=== PATIENT | female | born 1955 | race Caucasian/White ===

== ENCOUNTER → 2020-08-23 12:14 | Outpatient (BNVA) | payer OTHER, SELFPAY | PROVIDERS: PCP Internal Medicine; Visit Provider Internal Medicine | DX: I49.8 Other specified cardiac arrhythmias (principal); I10 Essential (primary) hypertension; Z79.899 Other long term (current) drug therapy | CPT/HCPCS: 99202 ==

== ENCOUNTER → 2020-09-07 13:11 | Outpatient (REF) | payer OTHER, SELFPAY ==
--- NOTE | 2020-09-07 13:23 | CA_ITS ---
Transthoracic Echocardiogram Patient (Last, First, Middle): Sharon Maldonado, Gender: Female Date of : 1955 Age: 64 Procedure Date: 09/07/2020 Procedure Type: Transthoracic Echocardiogram Location: OP Height: 157.48 cm Weight: 65.77 kg BSA: 1.67 m2 Heart Rate: bpm BP: 130 / 76 mmHg Sheet Metal Erector: FABIANA Perez MD: Zeeshan Maldonado MD Senior Firewall Engineer: Rolf Gates MD Symptoms: I49.8 - Other specified cardiac arrhythmias Study Quality: Good ECG Rhythm: Sinus Conclusions: - 1. Normal LV systolic function with impaired relaxation filling pattern 2. Normal cardiac valvular Doppler 3. Normal RV systolic pressure 4. No pericardial effusion Findings Left Ventricle Normal left ventricular size, thickness, and systolic function. The visually estimated ejection fraction is between 55-60%. Spectral Doppler is indicative of an impaired relaxation filling pattern. E/E prime ratio is between 8 and 15 consistent with indeterminate filling pressures. Right Ventricle Normal right ventricular cavity size and systolic function. Atria The left atrium is likely dilated. 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 There is no evidence of interatrial shunt. The right atrium is normal in size. Aortic Valve Normal aortic valve structure and function. There is no aortic valve stenosis. There is no aortic valve regurgitation. Mitral Valve Normal mitral valve structure and function. There is trace mitral valve regurgitation. There is no mitral valve stenosis. Pulmonic Valve The pulmonic valve was not well visualized. Tricuspid Valve Likely normal tricuspid valve structure and function. There is trace tricuspid valve regurgitation. The right ventricular systolic pressure is normal. The right ventricular systolic pressure is 25 mmHg. Normal right atrial pressure. There is no evidence of pulmonary hypertension. Great Vessels All visible segments of the aorta are normal in size. The pulmonary artery was not well visualized. Venous The inferior vena cava is normal in size and collapses greater than 50% with inspiration. Pericardium/Pleural There is no evidence of pericardial effusion. Prior Study Comparison No prior study available for comparison. Measurements 2D Linear Measurements RVIDd: 2.72 RVIDd Index: 1.63 IVSd: 1.10 0.6-0.9/0.6-1.0 cm LVIDd: 5.29 3.9-5.3/4.2-5.9 cm LVIDd Index: 3.17 2.4-3.2/2.2-3.1 cm/m2 LVIDs: 3.49 2.0-3.6 cm LVPWd: 0.96 0.7-1.1 cm Ao Root: 3.20 2.1-3.5 cm LA Diam: 4.00 2.7-3.8/3.0-4.0 cm LAIDs Index: 2.40 1.5-2.3 cm/m2 LV Mass: 259.50 67-162/88-224 g LV Mass Index: 155.39 43-95/49-115 g/m2 LVOT Diam: 2.10 3.0+(-)1.3 cm 2D Systolic Function EF 4C: 54.70 >55% EF 2C: 43.30 >55% Mitral Valve MV Pk E: 0.62 MV PK A: 1.05 MV Decel Time: 252.00 E/A: 0.60 E'Lateral: 6.42 E'Medial: 4.24 E/E' Med: 14.70 E/E' Lat: 9.70 Aortic Valve AoV Pk Ned: 1.35 AoV Mn Ned: 0.97 AoV VTI: 0.26 AoV Pk Grad: 7.00 Aov Mn Grad: 4.00 RENETTA Cont.VTI: 2.89 LVOT LVOT Pk Ned: 0.98 LVOT Mn Ned: 0.66 LVOT VTI: 0.22 LVOT Pk Grad: 4.00 LVOT Mn Grad: 2.00 LVOT Diam: 2.10 LVOT Area: 3.46 Diastolic Function MV Pk E: 0.62 MV Pk A: 1.05 E/A: 0.60 E'Medial: 4.24 E/E' Med: 14.70 E' Laterial: 6.42 E/E' Lat: 9.70 Tricuspid Valve TR Pk Ned: 2.35 TR Pk Grad: 22.00 RA Press: 3.00 RVSP: 25.00 Great Vessels Aorta Ao Root-2D: 3.20 2.0-3.7 cm Ao Asc: 3.10 2.1-3.4 cm Ao Arch: 2.20 Updated in Other Vendor System with Status of Final Rolf Gates MD electronically signed on 09/07/2020 2:58:08 PM with status of Final
--- NOTE | 2020-09-07 13:23 | ECG_ITS ---
Hook-up date: 2020-09-07 14:09:00 Duration: 47:59:00 Test Indications: UNSPEC. CARDIAC ARRHYTHMIAS Medications: [id number] QRS complexes 5 Ventricular ectopics which represent <1 % of total QRS comp. * Supraventricular ectopics which represent % of total QRS comp. * Paced QRS complexs which represent % of total QRS comp. VENTRICULAR ECTOPY 5 Isolated 0 Bigeminal Cycles 0 Couplets 0 Runs 0 Beats in Runs * Beats LONGEST at * BPM at :: -- * Beats FASTEST at * BPM at :: -- SUPRAVENTRICULAR ECTOPY * Isolated * Couplets * Runs * Beats in Runs * Beats LONGEST at * BPM at :: -- * Beats FASTEST at * BPM at :: -- HEART RATES 56 MIN at 17:43:53 2020-09-07 79 AVG 122 MAX at 18:37:59 2020-09-07 LONGEST RR 1.2640 secs at 03:07:37 2020-09-08 S-T LEVELS Channel 1 - 128 mm at 14:09:00 2020-09-07 - 128 mm at 14:09:00 2020-09-07 Channel 2 - 128 mm at 14:09:00 2020-09-07 - 128 mm at 14:09:00 2020-09-07 Channel 3 - 128 mm at 03:32:81 -- - 128 mm at 03:32:81 Basic rhythm Normal sinus rhythm No long pause or profound bradycardia Rare Premature ventricular complexes Patient did not report any symptoms in the diary Referred By: Zeeshan Maldonado Overread By: RANJIT BROWN MD
== END ==
LOC: HO.CARD 13:11
PROVIDERS: PCP Internal Medicine; Visit Provider Internal Medicine
DX: I49.8 Other specified cardiac arrhythmias (principal)
CPT/HCPCS: 93225; 93226; 93306

== ENCOUNTER → 2020-09-21 13:17 | Outpatient (BNVA) | payer OTHER, SELFPAY | PROVIDERS: PCP Internal Medicine; Referring Provider Internal Medicine; Visit Provider Internal Medicine | DX: I49.8 Other specified cardiac arrhythmias (principal); I10 Essential (primary) hypertension | CPT/HCPCS: 99212 ==

== ENCOUNTER 2021-02-24 13:01 | Outpatient (REF) | payer OTHER, SELFPAY ==
--- NOTE | ~2021-02-24 | XR_ITS ---
EXAMINATION: XR SHOULDER, LEFT CLINICAL INFORMATION: Pain COMPARISON: None TECHNIQUE: AP external rotation, Grashey, scapular Y, and axillary views of the left shoulder. FINDINGS: Bone alignment is normal. No fracture or dislocation is seen. The glenohumeral joint is normal. 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 Soft tissues are unremarkable. XR/XR shoulder LT min 2V IMPRESSION: Mild arthritis at the acromioclavicular joint.
[2021-02-24 14:31] LABS: Alanine Aminotransferase 19 U/L (0-31); Albumin Level 4.5 g/dL (3.5-5.0); Alkaline Phosphatase 70 U/L (39-117); Anion Gap 12 (12-20); Aspartate Amino Transferase 17 U/L (5-31); Bilirubin Total 0.4 mg/dL (0.0-1.0); Blood Urea Nitrogen 13 mg/dL (9-16); Calcium 9.2 mg/dL (8.4-10.2); Carbon Dioxide 27 mmol/L (22-29); Chloride 107 mmol/L (96-108); Estimated Glomerular Filt Rate 59; Glucose Random 96 mg/dL (60-115); Potassium 4.7 mmol/L (3.3-5.1); Sodium 141 mmol/L (135-145); Total Protein 6.9 g/dL (6.5-8.0)
== END 2021-02-24 13:02 | disposition home or self-care (01) ==
LOC: HO.HMGCX 13:01
PROVIDERS: PCP Internal Medicine; Visit Provider Internal Medicine
DX: M25.512 Pain in left shoulder (principal); I10 Essential (primary) hypertension
CPT/HCPCS: 36415; 73030; 80053

== ENCOUNTER 2022-10-17 17:49 | Emergency (ER) | payer MEDICARE, MEDICAID, SELFPAY ==
--- NOTE | ~2022-10-17 | XR_ITS ---
EXAMINATION: XR CHEST CLINICAL INFORMATION: Chest pain COMPARISON: None TECHNIQUE: Frontal view of the chest was obtained. FINDINGS: No significant abnormality is noted involving the heart, lungs, mediastinum, bony thorax or soft tissues. XR/XR chest 1V IMPRESSION: Unremarkable chest exam.
--- NOTE | 2022-10-17 18:24 | ED_ITS ---
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 Chest pain to the mid chest area described as pressure for localized to the retrosternal area, no radiation, associated with palpitation, feels like pressure on the mid chest and also feel like something stuck in her throat, patient was sitting in the car with no stressful event when the pain started, no relieving factor, no aggravating factors. Patient had similar symptoms in the past but did not seek medical attention. Patient has past medical history significant for hypertension and smoking history. Patient was evaluated by a sack filler in the past for palpitation needed Holter monitor which showed a benign PACs. <Abraham Orona MD - Last Filed: 10/18/22 01:22> Related Data Home medications: Home Medications Medication Instructions Recorded Confirmed fluoxetine 20 mg capsule 20 mg PO DAILY 08/23/20 09/29/21 lorazepam 0.5 mg tablet 0.5 mg PO DAILY PRN 08/23/20 09/29/21 zolpidem 10 mg tablet 10 mg PO BEDTIME PRN 08/23/20 09/29/21 Previous Rx's Medication Instructions Recorded irbesartan 300 mg tablet 300 mg PO DAILY 90 days #90 tabs 09/11/21 atenolol 50 mg-chlorthalidone 25 1 tab PO DAILY 90 days #90 tabs 09/12/21 mg tablet nifedipine 30 mg tablet,extended 30 mg PO DAILY 90 days #90 tabs 10/30/21 release 24 hr (Procardia XL) <FRANC Espinosa - Last Filed: 10/17/22 20:54> Allergies/adverse reactions: Allergies Allergy/AdvReac Type Severity Reaction Status Date / Time No Known Allergies Allergy Verified 12/25/21 11:21 <FRANC Espinosa - Last Filed: 10/17/22 20:54> Review of Systems Review of Systems: All other systems are reviewed and are negative Constitutional: Reports as per HPI and Reports no additional constitutional complaints Eyes: Reports as per HPI and Reports no additional eye complaints Reports system reviewed and no additional complaints, except as documented Cardiovascular: Reports as per HPI and Reports no additional cardiovascular complaints Respiratory: Reports as per HPI and Reports no additional respiratory complaints Gastrointestinal: Reports as per HPI and Reports no additional gastrointestinal complaints Genitourinary: Reports no additional female genitourinary complaints Musculoskeletal: Reports no additional musculoskeletal complaints Skin/Breast: Reports system reviewed and no additional complaints, except as docu Psychiatric: Reports no additional psychiatric complaints Endocrine: Reports no additional endocrine complaints Hematologic/Lymphatic: Reports no additional hematologic/lymphatic complaints Allergic/Immunologic: Reports no additional allergic/immunologic complaints Reports system reviewed and no additional complaints, except as documented and Reports Abnormal speech present <Abraham Orona MD - Last Filed: 10/18/22 01:22> [facility] Past Medical History Medical History: Medical History Essential hypertension <FRANC Espinosa - Last Filed: 10/17/22 20:54> Surgical History: Surgical History No pertinent past surgical history <FRANC Espinosa - Last Filed: 10/17/22 20:54> Family History Family History: Family History Sister No problems noted. Sister Cardiomyopathy Father Cancer of prostate Mother No problems noted. Brother No problems noted. Brother No problems noted. Other Mental health disorder Substance abuse <FRANC Espinosa - Last Filed: 10/17/22 20:54> Social History Social History: Social History Housing: House Patient Tobacco Use Status: Current everyday Tobacco user Tobacco use type: Cigarette Cigarettes Per Day: 7 Advance Directives: No Advance Directives Information Provided: Yes Current occupational status: unemployed <FRANC Espinosa - Last Filed: 10/17/22 20:54> Physical Exam ED Vital Signs: Vital Signs - 24 hr 10/17/22 18:25 10/18/22 00:17 Temperature 97.8 F 97.3 F Pulse Rate 92 83 Respiratory Rate 20 18 Blood Pressure 186/89 H 168/83 H Pulse Oximetry 96 96 Oxygen Delivery Method Room Air Room Air BMI result Body Mass Index 29.6 <FRANC Espinosa - Last Filed: 10/17/22 20:54> Vital Signs - 24 hr 10/17/22 18:25 10/18/22 00:17 Temperature 97.8 F 97.3 F Pulse Rate 92 83 Respiratory Rate 20 18 Blood Pressure 186/89 H 168/83 H Pulse Oximetry 96 96 Oxygen Delivery Method Room Air Room Air BMI result Body Mass Index 29.6 vital signs have been reviewed as appeared to be correct. Blood pressure Elevated. Heart rate normal. Respiration rate normal. Temperature normal. Oxygen saturation normal. <Abraham Orona MD - Last Filed: 10/18/22 01:22> Vital Signs - 24 hr 10/17/22 18:25 10/18/22 00:17 Temperature 97.8 F 97.3 F Pulse Rate 92 83 Respiratory Rate 20 18 Blood Pressure 186/89 H 168/83 H Pulse Oximetry 96 96 Oxygen Delivery Method Room Air Room Air BMI result Body Mass Index 29.6 <FRANC Mcfadden - Last Filed: 10/18/22 01:20> Appearance: anxious, Alert. Oriented X3. No acute distress. Head: Normal external exam. Normocephalic. Atraumatic. No Do signs noted. No raccoon eyes noted Eyes: PERRLA. EOMI. Conjunctiva and sclera normal. Eyelids normal. ENT: TM's Normal. Pharynx normal. Uvula midline. Moist mucous membranes. No trismus noted. No drooling noted. No muffled voice noted. Neck: Normal inspection. Neck supple. FROM. No adenopathy. Thyroid Normal. No meningeal signs. No neck mass noted. CVS: Normal heart rate and rhythm. Heart sound normal. No murmurs noted. Pulses normal throughout. Respiratory: No respiratory distress. Painless inspiration. Breath sounds nor mal. No wheezes/rales/rhonchi noted. Chest nontender. No accessory muscle usage noted or decreased air movement noted. Abdomen: Soft and nontender. Bowel sounds normal in all 4 quadrants. No distent ion noted. No organomegaly noted. No visible injury noted. Back: No CVA tenderness. Full range of motion noted. Skin: Skin warm and dry. Normal skin color. Normal skin turgor. No rashes/lesions/lacerations noted. Extremities: No lower extremity edema. Extremities exhibit normal range of mot ion. Extremities nontender. Neuro: Oriented X 3. Cranial nerve exam: II-XII are grossly intact No motor deficit. No sensory deficit. Reflexes normal. <Abraham Orona MD - Last Filed: 10/18/22 01:22> Course Course Course Narrative: RMReed--67-year-old female with past medical history hypertension, c/o substrnal CP x today. Admits to simialr sx in the past. Denies radiation of pain. Denies SOB, N/V, dizziness as present Vital signs stable, nontoxic appearing EKG, labs, CXR, COVID/influenza ordered in triage <FRANC Espinosa - Last Filed: 10/17/22 20:54> RME--67-year-old female with past medical history hypertension, c/o substrnal CP x today. Admits to simialr sx in the past. Denies radiation of pain. Denies SOB, N/V, dizziness as present Vital signs stable, nontoxic appearing EKG, labs, CXR, COVID/influenza ordered in triage [id number] My colleague asked me to go speak to patient and explained to her in [place] the risks of leaving against medical advice. I had an at length conversation with patient I explained to her that her troponin is elevated and there was concern of cardiac injury and potentially cardiac ischemia, I explained everything in layman's terms, patient tells me she does not like doctors or medical providers, patient extremely rude and states she wants to leave and she is unwilling to stay. I asked her why she did not want to stay and of there was anything we could do to make her stay more comfortable and she says she just hates hospitals and doctors just try to scare people she says she is not having a cardiac event she is fine she feels okay and she is not even having chest pain. She tells me she does not care if she dies when she walks out of here, she tells me she would rather be at home. Patient verbalizes understanding of risks versus benefits of leaving versus staying. Significant other at the bedside also understanding risks versus benefits. I did speak to my attending Dr. Orona about the conversation I had with patient, he had a similar interaction with patient earlier. Patient unwilling to stay and is willing to sign out against medical advice <FRANC Mcfadden - Last Filed: 10/18/22 01:20> Reevaluation(s) Reevaluation #1: There is a serious concern non ST elevation MT that was explained to the patient in [place] language, several attempt to make the patient change her mind to stay in the hospital patient do not like hospitals do not like doctors and she will not stay, patient is aware that this is a serious medical condition can lead to . FRANC Esposito who also speak fluent [place] tried to convince the patient unfortunately could not make the patient change her mind patient will sign AMA. Patient also earlier refused an aspirin/ nitro/Lopressor. Patient made aware that she welcome back to the hospital at any time. <Abraham Orona MD - Last Filed: 10/18/22 01:22> Time: 01:18 <Abraham Orona MD - Last Filed: 10/18/22 01:22> Medications Administered Discontinued Medications Generic Name Dose Route Start Last Admin Trade Name Michelle PRN Reason Stop Dose Admin Al Hydroxide/Mg Hydroxide 30 ml 10/17/22 22:36 10/17/22 23:18 Magnesium Hydrox/Alum Hydrox 30 Ml Oral.Susp PO 10/17/22 22:37 Not Given ONCE ONE Aspirin 81 mg 10/17/22 22:36 10/17/22 23:18 Aspirin Enteric Coated 81 Mg Tablet.Dr PO 10/17/22 22:37 Not Given ONCE ONE Metoprolol Tartrate 25 mg 10/17/22 22:36 10/17/22 23:18 Metoprolol Tartrate 25 Mg Tablet PO 10/17/22 22:37 Not Given ONCE ONE Protocol Nitroglycerin 0.5 inch 10/17/22 22:36 10/17/22 23:18 Nitroglycerin 2 % Oint 1 Gm Packet TRANSDERMA 10/17/22 22:37 Not Given ONCE ONE <FRANC Espinosa - Last Filed: 10/17/22 20:54> Medications Administered Discontinued Medications Generic Name Dose Route Start Last Admin Trade Name Michelle PRN Reason Stop Dose Admin Al Hydroxide/Mg Hydroxide 30 ml 10/17/22 22:36 10/17/22 23:18 Magnesium Hydrox/Alum Hydrox 30 Ml Oral.Susp PO 10/17/22 22:37 Not Given ONCE ONE Aspirin 81 mg 10/17/22 22:36 10/17/22 23:18 Aspirin Enteric Coated 81 Mg Tablet. PO 10/17/22 22:37 Not Given ONCE ONE Metoprolol Tartrate 25 mg 10/17/22 22:36 10/17/22 23:18 Metoprolol Tartrate 25 Mg Tablet PO 10/17/22 22:37 Not Given ONCE ONE Protocol Nitroglycerin 0.5 inch 10/17/22 22:36 10/17/22 23:18 Nitroglycerin 2 % Oint 1 Gm Packet TRANSDERMA 10/17/22 22:37 Not Given ONCE ONE <Abraham Orona MD - Last Filed: 10/18/22 01:22> Medications Administered Discontinued Medications Generic Name Dose Route Start Last Admin Trade Name Michelle PRN Reason Stop Dose Admin Al Hydroxide/Mg Hydroxide 30 ml 10/17/22 22:36 10/17/22 23:18 Magnesium Hydrox/Alum Hydrox 30 Ml Oral.Susp PO 10/17/22 22:37 Not Given ONCE ONE Aspirin 81 mg 10/17/22 22:36 10/17/22 23:18 Aspirin Enteric Coated 81 Mg Tablet. PO 10/17/22 22:37 Not Given ONCE ONE Metoprolol Tartrate 25 mg 10/17/22 22:36 10/17/22 23:18 Metoprolol Tartrate 25 Mg Tablet PO 10/17/22 22:37 Not Given ONCE ONE Protocol Nitroglycerin 0.5 inch 10/17/22 22:36 10/17/22 23:18 Nitroglycerin 2 % Oint 1 Gm Packet TRANSDERMA 10/17/22 22:37 Not Given ONCE ONE <FRANC Mcfadden - Last Filed: 10/18/22 01:20> Medical Decision Making Differential Diagnosis Differential Diagnoses: The differential diagnosis associated with the presentation includes ( A non ST elevation MT/ PE/pneumonia/ pneumothorax.) <Abraham Orona MD - Last Filed: 10/18/22 01:22> Lab Data MDM Lab Attestation statement: I reviewed the patient's lab results. <Abraham Orona MD - Last Filed: 10/18/22 01:22> Result Diagrams: : 10/17/22 20:12 10/17/22 20:12 <FRANC Espinosa - Last Filed: 10/17/22 20:54> Labs: Lab Results 10/17/22 10/17/22 10/17/22 Range/Units 20:12 20:12 20:12 WBC 7.1 (4.8-10.8) X10*3/uL RBC 4.11 L (4.20-5.50) X10*6/uL Hgb 12.8 (12.0-16.0) g/dl Hct 38.3 (37.0-47.0) % MCV 93.2 (80.0-98.0) fL MCH 31.1 (27.0-33.0) pg MCHC 33.4 (31.0-35.0) g/dl RDW 13.0 (11.0-16.0) % Plt Count 233 (160-400) X10*3/uL MPV 11.1 (9.4-12.3) fL Immature Gran % (Auto) 0.1 (0.0-0.4) % Neut % (Auto) 58.7 (45-73) % Lymph % (Auto) 31.5 (20-40) % [place] % (Auto) 6.5 (2-11) % Eos % (Auto) 2.5 (0-4) % Baso % (Auto) 0.7 (0-2) % Lymph # (Auto) 2.2 (1.2-4.9) X10*3/uL [place] # (Auto) 0.5 (0.1-1.2) X10*3/uL Eos # (Auto) 0.2 (0.0-0.4) X10*3/uL Baso # (Auto) 0.1 (0.0-0.2) X10*3/uL Abs Immat Gran (auto) 0.01 (0.00-0.03) X10*3/uL Absolute Neuts (auto) 4.2 (2.0-8.3) x10*3/uL Absolute Nucleated RBC 0.000 (0.0-0.012) X10*3/uL Nucleated RBC % (auto) 0.0 (0.0-0.2) /100WBC Sodium 142 (135-145) mmol/L Potassium 4.2 (3.3-5.1) mmol/L Chloride 109 H (96-108) mmol/L Carbon Dioxide 28 (22-29) mmol/L Anion Gap 9 L (12-20) BUN 26 H (9-16) mg/dL Creatinine 0.89 (0.5-1.4) mg/dL Estim Creat Clear Calc 58.3 Estimated GFR > 60 Random Glucose 108 (60-115) mg/dL Calcium 9.5 (8.4-10.2) mg/dL Total Bilirubin 0.3 (0.0-1.0) mg/dL Direct Bilirubin < 0.2 (0.0-0.5) mg/dL AST 14 (5-31) U/L ALT 13 (0-31) U/L Alkaline Phosphatase 81 (39-117) U/L Troponin I High Sens (<3.5-17.0) ng/L B-Natriuretic Peptide 15 (<100) pg/mL Total Protein 6.9 (6.5-8.0) g/dL Albumin 4.4 (3.5-5.0) g/dL TSH 1.54 (0.32-4.0) uIU/mL COVID-19 (BELEN) (Negative) COVID-19 Clin Com Influenza Type A (DON) (Negative) Influenza Type B (DON) (Negative) Influenza A & B Note 10/17/22 10/17/22 10/17/22 Range/Units 20:12 20:12 20:13 WBC (4.8-10.8) X10*3/uL RBC (4.20-5.50) X10*6/uL Hgb (12.0-16.0) g/dl Hct (37.0-47.0) % MCV (80.0-98.0) fL MCH (27.0-33.0) pg MCHC (31.0-35.0) g/dl RDW (11.0-16.0) % Plt Count (160-400) X10*3/uL MPV (9.4-12.3) fL Immature Gran % (Auto) (0.0-0.4) % Neut % (Auto) (45-73) % Lymph % (Auto) (20-40) % [place] % (Auto) (2-11) % Eos % (Auto) (0-4) % Baso % (Auto) (0-2) % Lymph # (Auto) (1.2-4.9) X10*3/uL [place] # (Auto) (0.1-1.2) X10*3/uL Eos # (Auto) (0.0-0.4) X10*3/uL Baso # (Auto) (0.0-0.2) X10*3/uL Abs Immat Gran (auto) (0.00-0.03) X10*3/uL Absolute Neuts (auto) (2.0-8.3) x10*3/uL Absolute Nucleated RBC (0.0-0.012) X10*3/uL Nucleated RBC % (auto) (0.0-0.2) /100WBC Sodium (135-145) mmol/L Potassium (3.3-5.1) mmol/L Chloride (96-108) mmol/L Carbon Dioxide (22-29) mmol/L Anion Gap (12-20) BUN (9-16) mg/dL Creatinine (0.5-1.4) mg/dL Estim Creat Clear Calc Estimated GFR Random Glucose (60-115) mg/dL Calcium (8.4-10.2) mg/dL Total Bilirubin (0.0-1.0) mg/dL Direct Bilirubin (0.0-0.5) mg/dL AST (5-31) U/L ALT (0-31) U/L Alkaline Phosphatase (39-117) U/L Troponin I High Sens 79.4 H* (<3.5-17.0) ng/L B-Natriuretic Peptide (<100) pg/mL Total Protein (6.5-8.0) g/dL Albumin (3.5-5.0) g/dL TSH (0.32-4.0) uIU/mL COVID-19 (BLEEN) Negative (Negative) COVID-19 Clin Com See Note Influenza Type A (DON) Negative (Negative) Influenza Type B (DON) Negative (Negative) Influenza A & B Note See Note 10/18/22 Range/Units 00:14 WBC (4.8-10.8) X10*3/uL RBC (4.20-5.50) X10*6/uL Hgb (12.0-16.0) g/dl Hct (37.0-47.0) % MCV (80.0-98.0) fL MCH (27.0-33.0) pg MCHC (31.0-35.0) g/dl RDW (11.0-16.0) % Plt Count (160-400) X10*3/uL MPV (9.4-12.3) fL Immature Gran % (Auto) (0.0-0.4) % Neut % (Auto) (45-73) % Lymph % (Auto) (20-40) % [place] % (Auto) (2-11) % Eos % (Auto) (0-4) % Baso % (Auto) (0-2) % Lymph # (Auto) (1.2-4.9) X10*3/uL [place] # (Auto) (0.1-1.2) X10*3/uL Eos # (Auto) (0.0-0.4) X10*3/uL Baso # (Auto) (0.0-0.2) X10*3/uL Abs Immat Gran (auto) (0.00-0.03) X10*3/uL Absolute Neuts (auto) (2.0-8.3) x10*3/uL Absolute Nucleated RBC (0.0-0.012) X10*3/uL Nucleated RBC % (auto) (0.0-0.2) /100WBC Sodium (135-145) mmol/L Potassium (3.3-5.1) mmol/L Chloride (96-108) mmol/L Carbon Dioxide (22-29) mmol/L Anion Gap (12-20) BUN (9-16) mg/dL Creatinine (0.5-1.4) mg/dL Estim Creat Clear Calc Estimated GFR Random Glucose (60-115) mg/dL Calcium (8.4-10.2) mg/dL Total Bilirubin (0.0-1.0) mg/dL Direct Bilirubin (0.0-0.5) mg/dL AST (5-31) U/L ALT (0-31) U/L Alkaline Phosphatase (39-117) U/L Troponin I High Sens 113.6 H* (<3.5-17.0) ng/L B-Natriuretic Peptide (<100) pg/mL Total Protein (6.5-8.0) g/dL Albumin (3.5-5.0) g/dL TSH (0.32-4.0) uIU/mL COVID-19 (BELEN) (Negative) COVID-19 Clin Com Influenza Type A (DON) (Negative) Influenza Type B (DON) (Negative) Influenza A & B Note <FRANC Espinosa - Last Filed: 10/17/22 20:54> Lab Results 10/17/22 10/17/22 10/17/22 Range/Units 20:12 20:12 20:12 WBC 7.1 (4.8-10.8) X10*3/uL RBC 4.11 L (4.20-5.50) X10*6/uL Hgb 12.8 (12.0-16.0) g/dl Hct 38.3 (37.0-47.0) % MCV 93.2 (80.0-98.0) fL MCH 31.1 (27.0-33.0) pg MCHC 33.4 (31.0-35.0) g/dl RDW 13.0 (11.0-16.0) % Plt Count 233 (160-400) X10*3/uL MPV 11.1 (9.4-12.3) fL Immature Gran % (Auto) 0.1 (0.0-0.4) % Neut % (Auto) 58.7 (45-73) % Lymph % (Auto) 31.5 (20-40) % [place] % (Auto) 6.5 (2-11) % Eos % (Auto) 2.5 (0-4) % Baso % (Auto) 0.7 (0-2) % Lymph # (Auto) 2.2 (1.2-4.9) X10*3/uL [place] # (Auto) 0.5 (0.1-1.2) X10*3/uL Eos # (Auto) 0.2 (0.0-0.4) X10*3/uL Baso # (Auto) 0.1 (0.0-0.2) X10*3/uL Abs Immat Gran (auto) 0.01 (0.00-0.03) X10*3/uL Absolute Neuts (auto) 4.2 (2.0-8.3) x10*3/uL Absolute Nucleated RBC 0.000 (0.0-0.012) X10*3/uL Nucleated RBC % (auto) 0.0 (0.0-0.2) /100WBC Sodium 142 (135-145) mmol/L Potassium 4.2 (3.3-5.1) mmol/L Chloride 109 H (96-108) mmol/L Carbon Dioxide 28 (22-29) mmol/L Anion Gap 9 L (12-20) BUN 26 H (9-16) mg/dL Creatinine 0.89 (0.5-1.4) mg/dL Estim Creat Clear Calc 58.3 Estimated GFR > 60 Random Glucose 108 (60-115) mg/dL Calcium 9.5 (8.4-10.2) mg/dL Total Bilirubin 0.3 (0.0-1.0) mg/dL Direct Bilirubin < 0.2 (0.0-0.5) mg/dL AST 14 (5-31) U/L ALT 13 (0-31) U/L Alkaline Phosphatase 81 (39-117) U/L Troponin I High Sens (<3.5-17.0) ng/L B-Natriuretic Peptide 15 (<100) pg/mL Total Protein 6.9 (6.5-8.0) g/dL Albumin 4.4 (3.5-5.0) g/dL TSH 1.54 (0.32-4.0) uIU/mL COVID-19 (BELEN) (Negative) COVID-19 Clin Com Influenza Type A (DON) (Negative) Influenza Type B (DON) (Negative) Influenza A & B Note 10/17/22 10/17/22 10/17/22 Range/Units 20:12 20:12 20:13 WBC (4.8-10.8) X10*3/uL RBC (4.20-5.50) X10*6/uL Hgb (12.0-16.0) g/dl Hct (37.0-47.0) % MCV (80.0-98.0) fL MCH (27.0-33.0) pg MCHC (31.0-35.0) g/dl RDW (11.0-16.0) % Plt Count (160-400) X10*3/uL MPV (9.4-12.3) fL Immature Gran % (Auto) (0.0-0.4) % Neut % (Auto) (45-73) % Lymph % (Auto) (20-40) % [place] % (Auto) (2-11) % Eos % (Auto) (0-4) % Baso % (Auto) (0-2) % Lymph # (Auto) (1.2-4.9) X10*3/uL [place] # (Auto) (0.1-1.2) X10*3/uL Eos # (Auto) (0.0-0.4) X10*3/uL Baso # (Auto) (0.0-0.2) X10*3/uL Abs Immat Gran (auto) (0.00-0.03) X10*3/uL Absolute Neuts (auto) (2.0-8.3) x10*3/uL Absolute Nucleated RBC (0.0-0.012) X10*3/uL Nucleated RBC % (auto) (0.0-0.2) /100WBC Sodium (135-145) mmol/L Potassium (3.3-5.1) mmol/L Chloride (96-108) mmol/L Carbon Dioxide (22-29) mmol/L Anion Gap (12-20) BUN (9-16) mg/dL Creatinine (0.5-1.4) mg/dL Estim Creat Clear Calc Estimated GFR Random Glucose (60-115) mg/dL Calcium (8.4-10.2) mg/dL Total Bilirubin (0.0-1.0) mg/dL Direct Bilirubin (0.0-0.5) mg/dL AST (5-31) U/L ALT (0-31) U/L Alkaline Phosphatase (39-117) U/L Troponin I High Sens 79.4 H* (<3.5-17.0) ng/L B-Natriuretic Peptide (<100) pg/mL Total Protein (6.5-8.0) g/dL Albumin (3.5-5.0) g/dL TSH (0.32-4.0) uIU/mL COVID-19 (BELEN) Negative (Negative) COVID-19 Clin Com See Note Influenza Type A (DON) Negative (Negative) Influenza Type B (DON) Negative (Negative) Influenza A & B Note See Note 10/18/22 Range/Units 00:14 WBC (4.8-10.8) X10*3/uL RBC (4.20-5.50) X10*6/uL Hgb (12.0-16.0) g/dl Hct (37.0-47.0) % MCV (80.0-98.0) fL MCH (27.0-33.0) pg MCHC (31.0-35.0) g/dl RDW (11.0-16.0) % Plt Count (160-400) X10*3/uL MPV (9.4-12.3) fL Immature Gran % (Auto) (0.0-0.4) % Neut % (Auto) (45-73) % Lymph % (Auto) (20-40) % [place] % (Auto) (2-11) % Eos % (Auto) (0-4) % Baso % (Auto) (0-2) % Lymph # (Auto) (1.2-4.9) X10*3/uL [place] # (Auto) (0.1-1.2) X10*3/uL Eos # (Auto) (0.0-0.4) X10*3/uL Baso # (Auto) (0.0-0.2) X10*3/uL Abs Immat Gran (auto) (0.00-0.03) X10*3/uL Absolute Neuts (auto) (2.0-8.3) x10*3/uL Absolute Nucleated RBC (0.0-0.012) X10*3/uL Nucleated RBC % (auto) (0.0-0.2) /100WBC Sodium (135-145) mmol/L Potassium (3.3-5.1) mmol/L Chloride (96-108) mmol/L Carbon Dioxide (22-29) mmol/L Anion Gap (12-20) BUN (9-16) mg/dL Creatinine (0.5-1.4) mg/dL Estim Creat Clear Calc Estimated GFR Random Glucose (60-115) mg/dL Calcium (8.4-10.2) mg/dL Total Bilirubin (0.0-1.0) mg/dL Direct Bilirubin (0.0-0.5) mg/dL AST (5-31) U/L ALT (0-31) U/L Alkaline Phosphatase (39-117) U/L Troponin I High Sens 113.6 H* (<3.5-17.0) ng/L B-Natriuretic Peptide (<100) pg/mL Total Protein (6.5-8.0) g/dL Albumin (3.5-5.0) g/dL TSH (0.32-4.0) uIU/mL COVID-19 (BELEN) (Negative) COVID-19 Clin Com Influenza Type A (DON) (Negative) Influenza Type B (DON) (Negative) Influenza A & B Note <Abraham Orona MD - Last Filed: 10/18/22 01:22> Lab Results 10/17/22 10/17/22 10/17/22 Range/Units 20:12 20:12 20:12 WBC 7.1 (4.8-10.8) X10*3/uL RBC 4.11 L (4.20-5.50) X10*6/uL Hgb 12.8 (12.0-16.0) g/dl Hct 38.3 (37.0-47.0) % MCV 93.2 (80.0-98.0) fL MCH 31.1 (27.0-33.0) pg MCHC 33.4 (31.0-35.0) g/dl RDW 13.0 (11.0-16.0) % Plt Count 233 (160-400) X10*3/uL MPV 11.1 (9.4-12.3) fL Immature Gran % (Auto) 0.1 (0.0-0.4) % Neut % (Auto) 58.7 (45-73) % Lymph % (Auto) 31.5 (20-40) % [place] % (Auto) 6.5 (2-11) % Eos % (Auto) 2.5 (0-4) % Baso % (Auto) 0.7 (0-2) % Lymph # (Auto) 2.2 (1.2-4.9) X10*3/uL [place] # (Auto) 0.5 (0.1-1.2) X10*3/uL Eos # (Auto) 0.2 (0.0-0.4) X10*3/uL Baso # (Auto) 0.1 (0.0-0.2) X10*3/uL Abs Immat Gran (auto) 0.01 (0.00-0.03) X10*3/uL Absolute Neuts (auto) 4.2 (2.0-8.3) x10*3/uL Absolute Nucleated RBC 0.000 (0.0-0.012) X10*3/uL Nucleated RBC % (auto) 0.0 (0.0-0.2) /100WBC Sodium 142 (135-145) mmol/L Potassium 4.2 (3.3-5.1) mmol/L Chloride 109 H (96-108) mmol/L Carbon Dioxide 28 (22-29) mmol/L Anion Gap 9 L (12-20) BUN 26 H (9-16) mg/dL Creatinine 0.89 (0.5-1.4) mg/dL Estim Creat Clear Calc 58.3 Estimated GFR > 60 Random Glucose 108 (60-115) mg/dL Calcium 9.5 (8.4-10.2) mg/dL Total Bilirubin 0.3 (0.0-1.0) mg/dL Direct Bilirubin < 0.2 (0.0-0.5) mg/dL AST 14 (5-31) U/L ALT 13 (0-31) U/L Alkaline Phosphatase 81 (39-117) U/L Troponin I High Sens (<3.5-17.0) ng/L B-Natriuretic Peptide 15 (<100) pg/mL Total Protein 6.9 (6.5-8.0) g/dL Albumin 4.4 (3.5-5.0) g/dL TSH 1.54 (0.32-4.0) uIU/mL COVID-19 ([facility]ELEN) (Negative) COVID-19 Clin Com Influenza Type A (DON) (Negative) Influenza Type B (DON) (Negative) Influenza A & B Note 10/17/22 10/17/22 10/17/22 Range/Units 20:12 20:12 20:13 WBC (4.8-10.8) X10*3/uL RBC (4.20-5.50) X10*6/uL Hgb (12.0-16.0) g/dl Hct (37.0-47.0) % MCV (80.0-98.0) fL MCH (27.0-33.0) pg MCHC (31.0-35.0) g/dl RDW (11.0-16.0) % Plt Count (160-400) X10*3/uL MPV (9.4-12.3) fL Immature Gran % (Auto) (0.0-0.4) % Neut % (Auto) (45-73) % Lymph % (Auto) (20-40) % [place] % (Auto) (2-11) % Eos % (Auto) (0-4) % Baso % (Auto) (0-2) % Lymph # (Auto) (1.2-4.9) X10*3/uL [place] # (Auto) (0.1-1.2) X10*3/uL Eos # (Auto) (0.0-0.4) X10*3/uL Baso # (Auto) (0.0-0.2) X10*3/uL Abs Immat Gran (auto) (0.00-0.03) X10*3/uL Absolute Neuts (auto) (2.0-8.3) x10*3/uL Absolute Nucleated RBC (0.0-0.012) X10*3/uL Nucleated RBC % (auto) (0.0-0.2) /100WBC Sodium (135-145) mmol/L Potassium (3.3-5.1) mmol/L Chloride (96-108) mmol/L Carbon Dioxide (22-29) mmol/L Anion Gap (12-20) BUN (9-16) mg/dL Creatinine (0.5-1.4) mg/dL Estim Creat Clear Calc Estimated GFR Random Glucose (60-115) mg/dL Calcium (8.4-10.2) mg/dL Total Bilirubin (0.0-1.0) mg/dL Direct Bilirubin (0.0-0.5) mg/dL AST (5-31) U/L ALT (0-31) U/L Alkaline Phosphatase (39-117) U/L Troponin I High Sens 79.4 H* (<3.5-17.0) ng/L B-Natriuretic Peptide (<100) pg/mL Total Protein (6.5-8.0) g/dL Albumin (3.5-5.0) g/dL TSH (0.32-4.0) uIU/mL COVID-19 ([facility]ELEN) Negative (Negative) COVID-19 Clin Com See Note Influenza Type A (DON) Negative (Negative) Influenza Type B (DON) Negative (Negative) Influenza A & B Note See Note 10/18/22 Range/Units 00:14 WBC (4.8-10.8) X10*3/uL RBC (4.20-5.50) X10*6/uL Hgb (12.0-16.0) g/dl Hct (37.0-47.0) % MCV (80.0-98.0) fL MCH (27.0-33.0) pg MCHC (31.0-35.0) g/dl RDW (11.0-16.0) % Plt Count (160-400) X10*3/uL MPV (9.4-12.3) fL Immature Gran % (Auto) (0.0-0.4) % Neut % (Auto) (45-73) % Lymph % (Auto) (20-40) % [place] % (Auto) (2-11) % Eos % (Auto) (0-4) % Baso % (Auto) (0-2) % Lymph # (Auto) (1.2-4.9) X10*3/uL [place] # (Auto) (0.1-1.2) X10*3/uL Eos # (Auto) (0.0-0.4) X10*3/uL Baso # (Auto) (0.0-0.2) X10*3/uL Abs Immat Gran (auto) (0.00-0.03) X10*3/uL Absolute Neuts (auto) (2.0-8.3) x10*3/uL Absolute Nucleated RBC (0.0-0.012) X10*3/uL Nucleated RBC % (auto) (0.0-0.2) /100WBC Sodium (135-145) mmol/L Potassium (3.3-5.1) mmol/L Chloride (96-108) mmol/L Carbon Dioxide (22-29) mmol/L Anion Gap (12-20) BUN (9-16) mg/dL Creatinine (0.5-1.4) mg/dL Estim Creat Clear Calc Estimated GFR Random Glucose (60-115) mg/dL Calcium (8.4-10.2) mg/dL Total Bilirubin (0.0-1.0) mg/dL Direct Bilirubin (0.0-0.5) mg/dL AST (5-31) U/L ALT (0-31) U/L Alkaline Phosphatase (39-117) U/L Troponin I High Sens 113.6 H* (<3.5-17.0) ng/L B-Natriuretic Peptide (<100) pg/mL Total Protein (6.5-8.0) g/dL Albumin (3.5-5.0) g/dL TSH (0.32-4.0) uIU/mL COVID-19 (BELEN) (Negative) COVID-19 Clin Com Influenza Type A (DON) (Negative) Influenza Type B (DON) (Negative) Influenza A & B Note <FRANC Mcfadden - Last Filed: 10/18/22 01:20> Independent Interpretation I performed an independent interpretation of an: EKG ( Normal sinus rhythm at 77 beats per minutes with frequent PACs, nonspecific T-wave inversion and flattening in the lateral leads.) and Plain X- Ray ( No acute pathology.) <Abraham Orona MD - Last Filed: 10/18/22 01:22> Radiology Impression Discussion of test interpretation with radiology: I have reviewed the radiologist's reading. <Abraham Orona MD - Last Filed: 10/18/22 01:22> Discharge Plan Discharge Clinical Impression: Non-ST elevated myocardial infarction <FRANC Espinosa - Last Filed: 10/17/22 20:54> Patient Disposition: Left Against Medical Advice <FRANC Espinosa - Last Filed: 10/17/22 20:54> Instructions: Heart Attack (DC) <FRANC Espinosa - Last Filed: 10/17/22 20:54> Additional Instructions: there is a serious concern of you having an active an acute heart attack please understand that this is a fatal disease and can cause or other major health problems, and since you are refusing staying in the hospital new taking a big risk for a major medical complication of your condition. Please return to the emergency department if any worsening of your chest pain. existe lulu gran preocupaci?n de que tenga un ataque card?aco stephany activo, comprenda que esta es lulu enfermedad fatal y puede causar la muerte u otros problemas de tank importantes, y dado que se niega a permanecer en el hospital, ahora est? corriendo un gran riesgo por un problema m?dico importante complicaci?n de osborn condici?n. Regrese al departamento de emergencias si osborn dolor de pecho empeora. <FRANC Espinosa - Last Filed: 10/17/22 20:54> Prescriptions: No Action irbesartan 300 mg tablet 300 mg PO DAILY 90 Days Qty: 90 1RF atenolol-chlorthalidone 50-25 mg tablet 1 tab PO DAILY 90 Days Qty: 90 0RF nifedipine [Procardia XL] 30 mg tablet extended release 24hr 30 mg PO DAILY 90 Days Qty: 90 0RF fluoxetine 20 mg capsule 20 mg PO DAILY lorazepam 0.5 mg tablet 0.5 mg PO DAILY PRN zolpidem 10 mg tablet 10 mg PO BEDTIME PRN <FRANC Espinosa - Last Filed: 10/17/22 20:54> Referrals: Angelica Díaz MD [Primary Care Provider] - <FRANC Espinosa - Last Filed: 10/17/22 20:54>
[2022-10-17 18:25] VITALS: BP 186/89; PULSE 92; RESP 20; TEMP 36.6; O2SAT 96; BMI 29.6
--- NOTE | 2022-10-17 18:25 | ECG_ITS ---
Test Reason : CHEST PAIN Blood Pressure : / mmHG Vent. Rate : 077 BPM Atrial Rate : 077 BPM P-R Int : 146 ms QRS Dur : 074 ms QT Int : 404 ms P-R-T Axes : 047 -05 067 degrees QTc Int : 457 ms Sinus rhythm with Premature atrial complexes Nonspecific T wave abnormality Abnormal ECG No previous ECGs available Referred By: Sandra Rdz Electronically Signed By:LATRICIA ERNST
[2022-10-17 20:18] LABS: MANUAL DIFF FLAG NO
[2022-10-17 20:19] LABS: Basophils Absolute Auto 0.1 X10*3/uL (0.0-0.2); Basophils Percent Auto 0.7 % (0-2); Eosinophils Absolute Auto 0.2 X10*3/uL (0.0-0.4); Eosinophils Percent Auto 2.5 % (0-4); Hematocrit 38.3 % (37.0-47.0); Hemoglobin 12.8 g/dl (12.0-16.0); Imm Gran Abs Auto 0.01 X10*3/uL (0.00-0.03); Imm Gran Pct Auto 0.1 % (0.0-0.4); Lymphocytes Absolute Auto 2.2 X10*3/uL (1.2-4.9); Lymphocytes Percent Auto 31.5 % (20-40); Mean Corpuscular HGB Conc 33.4 g/dl (31.0-35.0); Mean Corpuscular Hemoglobin 31.1 pg (27.0-33.0); Mean Corpuscular Volume 93.2 fL (80.0-98.0); Mean Platelet Volume 11.1 fL (9.4-12.3); Monocytes Absolute Auto 0.5 X10*3/uL (0.1-1.2); Monocytes Percent Auto 6.5 % (2-11); Neutrophils Absolute Auto 4.2 x10*3/uL (2.0-8.3); Neutrophils Percent Auto 58.7 % (45-73); Platelet Count 233 X10*3/uL (160-400); Red Blood Count 4.11 X10*6/uL (4.20-5.50); White Blood Count 7.1 X10*3/uL (4.8-10.8)
[2022-10-17 20:43] LABS: Alanine Aminotransferase 13 U/L (0-31); Albumin Level 4.4 g/dL (3.5-5.0); Alkaline Phosphatase 81 U/L (39-117); Anion Gap 9 (12-20); Aspartate Amino Transferase 14 U/L (5-31); Bilirubin Direct < 0.2 mg/dL (0.0-0.5); Bilirubin Total 0.3 mg/dL (0.0-1.0); Blood Urea Nitrogen 26 mg/dL (9-16); Calcium 9.5 mg/dL (8.4-10.2); Carbon Dioxide 28 mmol/L (22-29); Chloride 109 mmol/L (96-108); Creatinine Clr Calc Pharmacy 58.3; Estimated Glomerular Filt Rate > 60; Glucose Random 108 mg/dL (60-115); Potassium 4.2 mmol/L (3.3-5.1); Sodium 142 mmol/L (135-145); Total Protein 6.9 g/dL (6.5-8.0)
[2022-10-17 20:47] LABS: COVID-19 Test Negative (Negative); IDNOW Serial# 16C4AD1C; IDNOW Serial# BCCEAD1C; Influenza A Negative (Negative); Influenza B2 Negative (Negative)
[2022-10-17 20:48] LABS: B Type Natriuretic Peptide 15 pg/mL (<100)
[2022-10-17 20:50] LABS: Troponin-I High Sensitivity 79.4 ng/L (<3.5-17.0)
[2022-10-17 20:58] LABS: TSH reflex Free T4 1.54 uIU/mL (0.32-4.0)
--- NOTE | 2022-10-17 22:54 | PC.NURSE ---
patient refusing all medications ordered by MD. notified. , this RN, and medical staff services coordinator went into room to discuss with lewis
--- NOTE | 2022-10-17 22:55 | PC.NURSE ---
patient refusing all medications ordered by MD. notified. , this RN, and chief medical director went into room to discuss with patient the importance of taking these medications to prevent further complications d/t elevated troponin level. patient understand these risks and states i dont care what happens to me my made me come here . MD aware.
[2022-10-18 00:17] VITALS: BP 168/83; PULSE 83; RESP 18; TEMP 36.3; O2SAT 96
[2022-10-18 00:58] LABS: Troponin-I High Sensitivity 113.6 ng/L (<3.5-17.0)
--- NOTE | 2022-10-18 01:24 | PC.NURSE ---
patient informed of the risks of leaving against medical advice, informed of the dangers of not staying in hospital if she is having an acute heart attack. patient states she will go home and follow up with her pcp tomorrow and states she will return back if symptoms worsen. patient ambulatory with steady gait, in no apparent distress. at bedside.
== END 2022-10-18 01:27 | disposition left against medical advice (07) ==
PROVIDERS: Physician Assistant; Emergency Provider Emergency Medicine; PCP Internal Medicine
DX: I21.4 Non-ST elevation (NSTEMI) myocardial infarction (principal); Z20.822 Contact with and (suspected) exposure to COVID-19; I10 Essential (primary) hypertension; F17.210 Nicotine dependence, cigarettes, uncomplicated; Z79.899 Other long term (current) drug therapy
CPT/HCPCS: 36415; 71045; 80048; 80076; 83880; 84443; 84484; 85025; 87502; 87635; 93005; 99284

== ENCOUNTER 2025-05-21 13:04 | Outpatient (AMB) | payer MEDICARE, MEDICAID, SELFPAY ==
--- OUTSIDE RECORDS SUMMARY | 2025-05-21 13:06 | XMS_ITS | Patient Health Record ---
Author Organization [facility] Address [address] [place] [id number] Care Team Providers Care Stitch Wheeler Name Role Phone Arjun MOORE, Asma Primary Care Provider Ludwig Bonilla Unavailable [phone] Reason For Referral No Information Medications Medication SIG (Take, Route, Frequency, Duration) Notes Start Date End Date Status Zolpidem Tartrate Ac tive LORazepam Active Vitamin D3 Active Propranolol HCl 20 MG TK 1 T PO BID Oral for 30 Active Clotrimazole-Betamethasone 1-0.05 % BOLIVAR EXT AA BID External for 28 Active MiraLax (colon prep) 8.3 ounce ((238) grams mixed with Gatorade or Crystal Light orally begin at 5:00 p.m. the day before the procedure for 1 day 09/25/2017 Active Dulcolax (colon prep) 5 MG take at 3:00 p.m and 7:00p.m. Orally two tablets twice a day for one day for 1 day 09/25/2017 Active Fluoxetine Active Social History Tobacco Use: Social History Observation Description Date Details (start date - stop date) Current Smoker NA - NA Tobacco Use/Smoking Question Answer Notes Patient is a current smoker How many cigarettes a day do you smoke? 6-10 How soon after you wake up do you smoke your fir st cigarette? within 5 minutes Are you interested in quitting? Not ready to jessee t Alcohol Screen Question Answer Notes Did you have a drink containing alcohol in the p ast year? No Points 0 Interpretation Negative Section Notes: Smoker 1/2 ppd; no alcohol Problems Problem Type SNOMED Code ICD Code Onset Dates Problem Status W/U Status Risk Notes Problem 498247742 Encounter for screening for malignant neoplasm of colon (Z12.11) Active confirmed Problem 363640135 Preprocedural examination (Z01.818) Active confirmed Problem 842459163 History of colon polyps (Z86.010) Active confirmed Plan Of Treatment Pending Test Test Name Order Date GI BIOPSY 11/15/2017 Future Test Test Name Order Date COLONOSCOPY 09/25/2017 Insurance Providers Payer Name Payer Address Payer Phone Subscriber Number Group Number Insured Name Patient Relationship to Insured Coverage Start Date Coverage End Date [facility] [address] [address] [place], [place] [phone] [id number] COLON, IVET Self - patient is the insured MEDICAID OF [facility] [address] [place] [address] [id number] COLON, IVET Self - patient is the insured Medical (General) History Medical History History ICD Code Denies MS,DM,CVA,Lung disease,renal dise ase Anxiety/depression Colonoscopy 02/2011 at [facility]--1 tubula r adenoma removed Headaches--uses Propranolol
--- OUTSIDE RECORDS SUMMARY | 2025-05-21 13:06 | XMS_ITS | Clinical Summary ---
Author Organization [facility] Address [address] [place] [address] Phone Care Team Providers Care Inspector Rubber Stamp Die Name Role Phone Angelica Díaz MD Primary Care Provider [phone] Allergies No known active allergies Medications labetaloL (NORMODYNE) 100 mg tablet Take 1 Tablet by mouth daily. - Oral Active magnesium 200 mg tablet Take 1 Tablet by mouth daily. - Oral Active POTASSIUM ORAL Take 1 Tablet by mouth daily. - Oral Active aspirin 81 mg EC tablet Take 1 Tablet by mouth daily. - Oral Active atorvastatin (LIPITOR) 40 mg tablet Take 1 Tablet by mouth daily. - Oral Active irbesartan (AVAPRO) 300 mg tablet Take 1 Tablet by mouth daily. - Oral Active LORazepam (ATIVAN) 0.5 mg tablet Take 1 Tablet by mouth every 6 hours as needed. - Oral Active Active Problems Problem Noted Date Diagnosed Date Elevated troponin 08/17/2024 Hyperlipidemia 08/17/2024 Substernal chest pain 08/17/2024 Essential hypertension 08/17/2024 Medical History Medical History Date Comments Precordial pain DX:Precordial pa in Major depressive disorder, s brianda episode, severe without psychotic features (CMS/HCC V24, CMS/HCC V28) DX:Major depressiv e disorder, single episode, severe without psychotic features (HCC) Generalized anxiety disorder DX: Generalized anxiety disorder Pain in right foot DX:Pain in ri ght foot Family History Medical History Relation Name Comments Heart attack Sister Relation Name Status Comments Sister Social History Tobacco Use Types Packs/Day Years Used Date Smoking Tobacco: Every Day Smokeless Tobacco: Never Alcohol Use Standard Drinks/Week Comments Not Currently 0 (1 standard drink = 0.6 oz pur e alcohol) Comments Unknown Sex and Gender Information Value Date Recorded Sex Assigned at Not on file Legal Sex Female 1:54 PM EST Gender Identity Not on file Sexual Orientation Not on file Obstetrics History Plan of Treatment Health Maintenance Due Date Last Done Comments Breast Cancer Screening 1955 DTaP,Tdap,and Td Vaccines (1 - Tdap) 1975 Pneumococcal Vaccine: 50+ Ye ars (1 of 2 - PCV) 1975 Zoster Vaccines (1 of 2) 2006 Cholesterol Screening (Lipid Panel) 09/12/2022 Colorectal Cancer Screening: Colonoscopy 09/12/2022 Falls Risk Assessment 09/12/2022 Hepatitis C Screening 09/12/2022 Osteoporosis Screening (Bone Density Screening) 09/12/2022 Social Influencers of Health Screening 09/12/2022 COVID-19 Vaccine (1 - 2023-2 5 season) 2024 Hypertension/CHF/CAD Annual BMP Blood Test 08/18/2024 Depression Screening 10/14/2024 Influenza Vaccine (#1) 2025 RSV Immunization Adult Patie nts (1 - 1-dose 75+ series) 2031 HIB Vaccines Aged Out No longer eligi ble based on patient's age to complete this topic HPV Vaccines Aged Out No longer eligi ble based on patient's age to complete this topic Hepatitis A Vaccines Aged Out No long er eligible based on patient's age to complete this topic Hepatitis B Vaccines Aged Out No long er eligible based on patient's age to complete this topic IPV Vaccines Aged Out No longer eligi ble based on patient's age to complete this topic MMR Vaccines Aged Out No longer eligi ble based on patient's age to complete this topic Meningococcal ACWY Vaccine Aged Out N o longer eligible based on patient's age to complete this topic Meningococcal B Vaccine Aged Out No l onger eligible based on patient's age to complete this topic RSV Immunization Patients Un haseeb 20 months Aged Out No longer eligible b ased on patient's age to complete this topic Varicella Vaccines Aged Out No longer eligible based on patient's age to complete this topic Insurance [facility] Member Subscriber Plan / Payer (Ef fective 2021-Present) Name:Sharon Maldonado Relation to Subscriber:Self Name:Sharon Maldonado Payer ID:[id number] Group ID:[id number] Type:Not on file Address: [place] [address] [place] [id number] Care Teams Inspector Rubber Stamp Die Relationship Specialty Start Date End Date Angelica Díaz MD [address] [place] [address] PCP - General Internal Medicine 09/07/24
--- OUTSIDE RECORDS SUMMARY | 2025-05-21 13:06 | XMS_ITS | Clinical Summary ---
Author Organization [employer] [facility] Address [address] [place] [address] Care Team Providers Care Photography Instructor Name Role Phone Unavailable Primary Care Provider Unavailabl e Allergies No known active allergies Medications zolpidem (Ambien) 5 MG tablet 5 Active MAGNESIUM PO Take 1 Tablet by mouth daily. - Oral Active LORazepam (Ativan) 0.5 MG tablet Take 1 Tablet by mouth every 6 hours as needed. - Oral Active busPIRone (Buspar) 5 MG tablet 5 Active chlorhexidine (Peridex) 0.12 % solution Swish 15 mL morning and night for 1 minute. Spit, do not swallow. Do not eat or drink for 30 minutes following use. 473 mL 5 Active acetaminophen (Tylenol 8 Hour) 650 MG ER tablet Take 1 tablet (650 mg) by mouth every 8 (eight) hours if needed for mild pain. Do not crush, chew, or split. 20 tablet 5 Active amoxicillin (Amoxil) 500 MG capsule Take 1 capsule (500 mg) by mouth every 8 (eight) hours for 7 days. 21 capsule 5 05/10/20 Active Problems Problem Noted Date Diagnosed Date Encounter for screening for malignant neoplasm o f colon 05/03/2025 History of colon polyps 05/03/2025 Preprocedural examination 05/03/2025 Dental abscess 05/03/2025 Essential hypertension 08/17/2024 Hyperlipidemia 08/17/2024 Elevated troponin 08/17/2024 Substernal chest pain 08/17/2024 Encounters Date Type Department Care Team Description 05/03/2025 1:30 PM EDT Office Visit [facility] [address] [place] [address] Richard Putnam DDS Dental abscess (Primary Dx); Essential hypertension 03/29/2025 1:00 PM EDT Office Visit [facility] [address] [place] [address] Conrad Muller DMD from Last 3 Months Social History Tobacco Use Types Packs/Day Years Used Date Smoking Tobacco: Every Day Cigarettes Smokeless Tobacco: Never Tobacco Cessation:Ready to Q uit: Not Asked; Counseling Given: Not Answered Alcohol Use Standard Drinks/Week Comments Never 0 (1 standard drink = 0.6 oz pur e alcohol) Comments Unknown Sex and Gender Information Value Date Recorded Sex Assigned at Female 03/29/2025 9:36 AM EDT Legal Sex Female 9:32 AM EDT Gender Identity Female 03/29/2025 9:36 AM EDT Sexual Orientation Choose not to disclose 2024 9:36 AM EDT Last Filed Vital Signs Vital Sign Reading Time Taken Comments Blood Pressure 238/120 05/03/2025 1:59 PM EDT Pulse 72 05/03/2025 1:29 PM EDT Temperature - - Respiratory Rate - - Oxygen Saturation - - Inhaled Oxygen Concentration - - Weight - - Height - - Body Mass Index - - Plan of Treatment Health Maintenance Due Date Last Done Comments CT Colonography 1956 Colonoscopy 1956 Colorectal Cancer Screening 1956 Dental Oral Exam 1956 Dental Prophylaxis 1956 Dental X-Ray: Bitewings 1956 Depression Screening 1956 FIT DNA/Cologuard 1956 FIT 1956 FOBT 1956 Lipid Panel 1956 SDOH Screening 1956 Sigmoidoscopy 1956 Alcohol/Substance Use Screening 1968 Hepatitis C Screening 1974 Pneumococcal Vaccine: 50+ Ye ars (1 of 2 - PCV) 1975 Mammogram 1996 Zoster Vaccines (1 of 2) 2006 COVID-19 Vaccine ( - 2023-2 5 season) 2024 Influenza Vaccine (#1) 2025 Tobacco Screening 05/03/2026 05/03/2025 DTaP/Tdap/Td Vaccines (2 - T d or Tdap) 06/05/2026 06/05/2016 Dental X-Ray: Full Mouth 03/30/2028 03/29/2025 RSV Patients and Pa tients Aged 60 years or older (1 - 1-dose 75+ series) 2031 HIB [...] patient's age to complete this topic Meningococcal Vaccine Aged Out No jerson buster eligible based on patient's age to complete this topic RSV under 20 months Aged Out No longe r eligible based on patient's age to complete this topic Rotavirus Vaccines Aged Out No longer eligible based on patient's age to complete this topic Procedures Procedure Name Priority Date/Time Associated Diagnosis Comments LIMITED ORAL EVALUATION - PROBLEM FOCUSED Routine 05/03/2025 1:30 PM EDT CASE PRESENTATION, DETAILED AND EXTENSIVE TREATMENT PLANNING Routine 03/29/2025 1:00 PM EDT PALLIATIVE (EMERGENCY) TREATMENT OF DENTAL PAIN - MINOR PROCEDURE Routine 03/29/2025 1:00 PM EDT PANORAMIC RADIOGRAPHIC IMAGE Routine 03/29/2025 1:00 PM EDT 15,14,11,10,8,9,2,3,4,5 PARTIAL DENTURE - RESIN Routine 03/29/2025 12:00 AM EDT from Last 3 Months Insurance DENTAL - [facility]
--- NOTE | 2025-05-21 13:15 | MHC.PC.OV ---
Vital Signs 05/21/25 13:16 Height 5 ft 2 in Weight 159 lb BMI 29.1 BP 130/88 Blood Pressure Location Lt brachial Position Sitting Pulse 64 Pulse Source Pulse Oximeter Temp 98.5 F Temp Source Oral Pulse Oximetry (%) 97 Oxygen Delivery Method Room Air Intake Visit Reasons: BP check dental clearance Allergies No Known Allergies Allergy (Verified 05/21/25 13:16) Medication List - Last Reconciled 05/21/25 by Angelica Díaz MD amlodipine 10 mg PO DAILY 90 days aspirin 81 mg PO DAILY fluoxetine 20 mg PO DAILY zolpidem 10 mg PO BEDTIME PRN Tobacco use date assessed: 05/21/25 Fall risk assessment: No Falls in past year Last assessed Fall Risk: 05/21/25 Dental Screening Dental Screen Date: 05/21/25 Did you have a dental visit in the last 12 months?: Yes Did you have a dental problem in the last 6 months where you did not have access to dental care?: No Was dental information given to patient?: Patient has dentist HPI BP check dental clearance HPI Details Patient is 69-year-old female who has not been seen since January of last year Came in today as she was found to have high blood pressure at dental office Her blood pressure is 130/88 today She was supposed to be on amlodipine 10 mg which she has stopped I have recent it reduced the dose to 5 mg patient was notified to start taking that 1 daily She will have labs done today as well Does have severe anxiety and depression She has lost couple of family members in last few months which has made it worse She is currently seeing psychiatrist and is taking medication through them She is on Ambien and fluoxetine She will return in 3 months for physical exam [facility] Medical History Essential hypertension Surgical History No pertinent past surgical history Family History Sister No problems noted. Sister Cardiomyopathy Father Cancer of prostate Mother No problems noted. Brother No problems noted. Brother No problems noted. Other Mental health disorder Substance abuse Social History Housing: House Patient Tobacco Use Status: Current everyday Tobacco user Tobacco use type: Cigarette Cigarettes Per Day: 2 e-Cigarette/Vaping Use: Never Used service: No Current occupational status: unemployed Cognitive needs: No Hearing needs: No Vision needs: No Questionnaire Thrive Questionnaire Date Thrive assessed: 10/23/22 AUDIT C Alcohol Use Questionnaire (AUDIT-C) 1. How often do you have a drink containing alcohol?: Never 3. How often do you have six or more drinks on one occasion?: Never Total Score: 0 GIOVANI-7 AMB Questionnaire GIOVANI-7 Date GIOVANI - 7 assessed: 05/21/25 Feeling nervous, anxious, or on edge: 2 = More than half the days Not being able to stop or control worryin = Nearly every day Worrying too much about different things: 3 = Nearly every day Trouble relaxin = Nearly every day Being so restless that it is hard to sit still: 3 = Nearly every day Becoming easily annoyed or irritable: 3 = Nearly every day Feeling afraid as if something awful might happen: 3 = Nearly every day Total GIOVANI-7 score (0-4 normal; 5-9 mild; 10-14 moderate; 15-21 severe): 20 Source: Developed by Drs. Ludwig Donaldson, Farheen Fierro, Giovani Gilliam and colleagues, with an educational blu from [employer]. Review of Systems Const Denies chills and Denies fever(s) ENT Denies epistaxis and Denies nasal discharge Card Denies chest pain Resp Denies chest congestion, Denies cough and Denies hemoptysis GI Denies diarrhea and Denies nausea Skin/Breast Denies rash Neuro Reports no additional complaints Psych Reports no additional complaints Endo Reports no additional complaints Physical exam (Primary Care) Vital Signs: Last Vital Signs Temp 98.5 F 05/21/25 13:16 Pulse 64 05/21/25 13:16 BP 130/88 05/21/25 13:16 Pulse Ox 97 05/21/25 13:16 Oxygen Delivery Method Room Air 05/21/25 13:16 BMI result Body Mass Index 29.1 Tobacco/Smoking Status: Tobacco use Status Tobacco use date assessed 05/21/25 05/21/25 13:22 Patient Tobacco Use Status Current everyday Tobacco 05/21/25 13:22 Tobacco use type Cigarette 05/21/25 13:22 e-Cigarette/Vaping Use Never Used 05/21/25 13:22 Thrive Assessment: Date of Thrive Assessment Date Thrive assessed 10/23/22 05/21/25 13:22 Const General: cooperative, comfortable and no acute distress Orientation/consciousness: patient oriented x3 HENMT Head: Yes normocephalic Eyes General: appearance normal, both eyes and all related structures Neck Neck: Yes supple Resp Effort & Inspection: normal respiratory effort, no cough and no stridor Cardio Rhythm: regular rhythm Heart sounds: S1 normal heart sound present and S2 normal heart sound present Skin General skin exam: turgor normal Neuro General: patient oriented x3, tone normal and moves all extremities Extrem Right lower extremity: no edema Left lower extremity: no edema Coding Level of Care Code Est Pt Level 3 (59719) Complex EM visit Add On G2211 Diagnoses Essential hypertension I10 Major depressive disorder, severe F32.2 Anxiety, generalized F41.1 Tobacco abuse Z72.0 Family history of diabetes mellitus Z83.3 Assessment & Plan Assessment & Plan (1) Essential hypertension: Code(s): I10 - Essential (primary) hypertension Category: Medical (2) Major depressive disorder, severe: Code(s): F32.2 - Major depressive disorder, single episode, severe without psychotic features Category: Medical (3) Anxiety, generalized: Code(s): F41.1 - Generalized anxiety disorder Category: Medical (4) Tobacco abuse: Code(s): Z72.0 - Tobacco use Category: Medical (5) Family history of diabetes mellitus: Code(s): Z83.3 - Family history of diabetes mellitus Category: Medical Plan Patient is 69-year-old female who has not been seen since January of last year Came in today as she was found to have high blood pressure at dental office Her blood pressure is 130/88 today She was supposed to be on amlodipine 10 mg which she has stopped I have recent it reduced the dose to 5 mg patient was notified to start taking that 1 daily She will have labs done today as well Does have severe anxiety and depression She has lost couple of family members in last few months which has made it worse She is currently seeing psychiatrist and is taking medication through them She is on Ambien and fluoxetine She will return in 3 months for physical exam Orders: Orders Complete Blood Count Auto Diff Today F32.2 - Major depressive disorder, single episode, severe without psychotic features, F41.1 - Generalized anxiety disorder, I10 - Essential (primary) hypertension, Z72.0 - Tobacco use Comprehensive Met. Panel Today F32.2 - Major depressive disorder, single episode, severe without psychotic features, F41.1 - Generalized anxiety disorder, I10 - Essential (primary) hypertension, Z72.0 - Tobacco use TSH reflex Free T4 Today F32.2 - Major depressive disorder, single episode, severe without psychotic features, F41.1 - Generalized anxiety disorder, I10 - Essential (primary) hypertension, Z72.0 - Tobacco use LDL Cholesterol Direct Today F32.2 - Major depressive disorder, single episode, severe without psychotic features, F41.1 - Generalized anxiety disorder, I10 - Essential (primary) hypertension, Z72.0 - Tobacco use Hemoglobin A1c Today Z83.3 - Family history of diabetes mellitus Medications: New lorazepam 1 hour before dental procedure 0.5 mg PO DAILY PRN 2 tabs 0RF anxiety 2 days Changed From amlodipine 10 mg PO DAILY 90 days 90 tabs 0RF To amlodipine 5 mg PO DAILY 90 tabs 0RF 90 days
[2025-05-21 13:16] VITALS: BP 130/88; PULSE 64; TEMP 36.9; O2SAT 97; BMI 29.1
== END 2025-05-21 13:34 | disposition home or self-care (01) ==
LOC: HO.HMCC 13:05
PROVIDERS: PCP Internal Medicine; Visit Provider Internal Medicine
DX: I10 Essential (primary) hypertension (principal); F32.2 Major depressive disorder, single episode, severe without psychotic features; F41.1 Generalized anxiety disorder; Z72.0 Tobacco use; Z83.3 Family history of diabetes mellitus

== ENCOUNTER 2025-05-21 13:04 | Outpatient (REF) | payer MEDICARE, SELFPAY ==
[2025-05-21 16:11] LABS: MANUAL DIFF FLAG NO
[2025-05-21 16:19] LABS: Hematocrit 37.3 % (37.0-47.0); Hemoglobin 12.8 g/dl (12.0-16.0); Imm Gran Abs Auto 0.00 X10*3/uL (0.00-0.03); Imm Gran Pct Auto 0.0 % (0.0-0.4); Lymphocytes Absolute Auto 1.6 X10*3/uL (1.2-4.9); Mean Corpuscular HGB Conc 34.3 g/dl (31.0-35.0); Mean Corpuscular Hemoglobin 30.4 pg (27.0-33.0); Mean Corpuscular Volume 88.6 fL (80.0-98.0); NRBC Abs Auto 0.000 X10*3/uL (0.0-0.012); NRBC Pct Auto 0.0 /100WBC (0.0-0.2); Platelet Count 264 X10*3/uL (160-400); Red Blood Count 4.21 X10*6/uL (4.20-5.50); White Blood Count 5.4 X10*3/uL (4.8-10.8)
[2025-05-21 16:33] LABS: Hemoglobin A1C 146.4719 umol/L; Total Hemoglobin (HGBA1C) 3458.0348 umol/L
[2025-05-21 16:44] LABS: Alanine Aminotransferase 19 U/L (0-31); Albumin Level 4.4 g/dL (3.5-5.0); Alkaline Phosphatase 70 U/L (39-117); Anion Gap 11 (12-20); Aspartate Amino Transferase 23 U/L (5-31); Blood Urea Nitrogen 19 mg/dL (9-16); Calcium 8.6 mg/dL (8.4-10.2); Carbon Dioxide 25 mmol/L (22-29); Chloride 109 mmol/L (96-108); Estimated Glomerular Filt Rate 49; Potassium 4.1 mmol/L (3.3-5.1); Sodium 141 mmol/L (135-145); Total Protein 7.3 g/dL (6.5-8.0)
== END 2025-05-21 13:05 | disposition home or self-care (01) ==
LOC: HO.HMGCLDS 13:04
PROVIDERS: PCP Internal Medicine; Visit Provider Internal Medicine
DX: I10 Essential (primary) hypertension (principal); F32.2 Major depressive disorder, single episode, severe without psychotic features; F41.1 Generalized anxiety disorder; F17.210 Nicotine dependence, cigarettes, uncomplicated; Z83.3 Family history of diabetes mellitus
CPT/HCPCS: 36415; 80053; 83036; 83721; 84443; 85025; 96127; 99212